=== PATIENT | male | born 1985 | race Caucasian/White ===

== ENCOUNTER → 2017-06-17 | Outpatient (CLI) | payer OTHER ==
[2017-06-17 18:00] LABS: HEMATOCRIT 44.7 % (42.0-52.0); HEMOGLOBIN 15.8 g/dl (14.0-18.0); MEAN CORPUSCULAR HGB CONC 35.3 g/dl (32.0-36.5); MEAN CORPUSCULAR VOLUME 87.6 fl (80.0-96.0); PLATELET COUNT, AUTOMATED 271 10^3/uL (150-450)
[2017-06-17 18:04] LABS: ALBUMIN 4.1 GM/DL (3.2-5.2); ALBUMIN/GLOBULIN RATIO 1.21 (1.00-1.93); ALKALINE PHOSPHATASE 98 U/L (45-117); ALT/SGPT 131 U/L (12-78); ANION GAP 7 MEQ/L (8-16); AST/SGOT 51 U/L (7-37); BILIRUBIN,DIRECT < 0.1 MG/DL (0.0-0.2); BILIRUBIN,TOTAL 0.3 MG/DL (0.2-1.0); BLOOD UREA NITROGEN 13 MG/DL (7-18); CALCIUM LEVEL 8.9 MG/DL (8.5-10.1); CARBON DIOXIDE LEVEL 28 MEQ/L (21-32); CHLORIDE LEVEL 103 MEQ/L (98-107); CREATININE FOR GFR 0.93 MG/DL (0.70-1.30); GLOMERULAR FILTRATION RATE > 60.0 (>60); GLUCOSE, FASTING 95 MG/DL (70-100); PHOSPHORUS LEVEL 3.4 MG/DL (2.5-4.9); POTASSIUM SERUM 4.1 MEQ/L (3.5-5.1); SODIUM LEVEL 138 MEQ/L (136-145); TOTAL PROTEIN 7.5 GM/DL (6.4-8.2)
== END ==
LOC: M SMT 15:27
DX: Z79.899 Other long term (current) drug therapy (principal)

== ENCOUNTER → 2017-11-10 | Outpatient (REF) | payer OTHER | LOC: M SMT 13:35 | DX: Z30.2 Encounter for sterilization (principal) | CPT/HCPCS: 88302 ==

== ENCOUNTER → 2019-08-26 | Outpatient (CLI) | payer OTHER ==
[2019-08-26 16:38] LABS: BASO % 0.3 % (0.0-1.0); EOS % 0.1 % (0.0-3.0); HEMATOCRIT 46.5 % (42.0-52.0); HEMOGLOBIN 16.1 g/dl (13.5-17.5); LYMPH # 1.5 10^3/uL (1.5-5.0); LYMPH % 12.8 % (24.0-44.0); MEAN CORPUSCULAR HEMOGLOBIN 31.9 pg (27.0-33.0); MEAN CORPUSCULAR HGB CONC 34.6 g/dl (32.0-36.5); MEAN CORPUSCULAR VOLUME 92.3 fl (80.0-96.0); MONO # 0.3 10^3/uL (0.0-0.8); MONO % 2.5 % (0.0-5.0); NEUTROPHILS # 9.6 10^3/uL (1.5-8.5); NEUTROPHILS % 83.9 % (36.0-66.0); PLATELET COUNT, AUTOMATED 285 10^3/uL (150-450); RED BLOOD COUNT 5.04 10^6/uL (4.30-6.10); WHITE BLOOD COUNT 11.4 10^3/uL (4.0-10.0)
[2019-08-26 17:02] LABS: ALBUMIN 4.3 GM/DL (3.2-5.2); ALT/SGPT 78 U/L (12-78); AMYLASE 46 U/L (25-115); BILIRUBIN,TOTAL 0.4 MG/DL (0.2-1.0); BLOOD UREA NITROGEN 12 MG/DL (7-18); CALCIUM LEVEL 9.2 MG/DL (8.5-10.1); CARBON DIOXIDE LEVEL 25 MEQ/L (21-32); CHLORIDE LEVEL 106 MEQ/L (98-107); CREATININE FOR GFR 1.06 MG/DL (0.70-1.30); GLOMERULAR FILTRATION RATE > 60.0 (>60); GLUCOSE, FASTING 150 MG/DL (70-100); LIPASE 94 U/L (73-393); POTASSIUM SERUM 4.5 MEQ/L (3.5-5.1); SODIUM LEVEL 140 MEQ/L (136-145); TOTAL PROTEIN 7.9 GM/DL (6.4-8.2)
--- NOTE | 2019-08-27 00:59 | REP ---
Clinical: Nausea. Technique: Two supine views of the abdomen and pelvis. Findings: The bowel gas pattern is relatively nonspecific although mild fecal stasis cannot be excluded. No evidence for obstruction or perforation. No organomegaly. No abnormal calcifications or foreign body. Skeletal structures are intact. Impression: Essentially nonspecific abdominal radiograph. Electronically Signed by Doug Oglesby MD 08/27/2019 12:51 A
== END ==
LOC: M WUC 14:44
PROVIDERS: ATTEND Physician Assistant
DX: R11.2 Nausea with vomiting, unspecified (principal)

== ENCOUNTER 2019-09-26 18:19 | Emergency (ER) | payer OTHER ==
[~2019-09-26] VITALS: Ht 167.6 cm; Wt 94.0 kg
[2019-09-26] MEDS ORDERED: PRIL20TA2 PO (18:24)
[2019-09-26 18:55] LABS: BASO % 0.2 % (0.0-1.0); EOS % 0.1 % (0.0-3.0); HEMOGLOBIN 16.3 g/dl (13.5-17.5); LYMPH # 1.4 10^3/uL (1.5-5.0); LYMPH % 11.6 % (24.0-44.0); MEAN CORPUSCULAR HGB CONC 35.4 g/dl (32.0-36.5); MEAN CORPUSCULAR VOLUME 90.2 fl (80.0-96.0); MONO # 0.3 10^3/uL (0.0-0.8); MONO % 2.6 % (0.0-5.0); NEUTROPHILS # 10.2 10^3/uL (1.5-8.5); NEUTROPHILS % 85.1 % (36.0-66.0); PLATELET COUNT, AUTOMATED 286 10^3/uL (150-450)
[2019-09-26] MEDS ORDERED: NS 1,000 ML IV ONE (19:00)
[2019-09-26] MEDS ORDERED: ISOVUE-370 76% 100ML VIAL As Ordered ONE (19:00)
[2019-09-26] MEDS ORDERED: ONDANSETRON 4MG/2ML VIAL IV ONE (19:00)
[2019-09-26 19:15] LABS: ALBUMIN 4.3 GM/DL (3.2-5.2); BILIRUBIN,DIRECT 0.2 MG/DL (0.0-0.2); BILIRUBIN,TOTAL 0.6 MG/DL (0.2-1.0); TOTAL PROTEIN 7.8 GM/DL (6.4-8.2)
--- NOTE | 2019-09-26 19:40 | REPVR ---
PROCEDURE INFORMATION: Exam: CT Abdomen And Pelvis With Contrast Exam date and time: 09/26/2019 7:08 PM Age: 34 years old Clinical indication: Abdominal pain; Additional info: Abd pain with n/v TECHNIQUE: Imaging protocol: Computed tomography of the abdomen and pelvis with intravenous contrast. Radiation optimization: All CT scans at this facility use at least one of these dose optimization techniques: automated exposure control; mA and/or kV adjustment per patient size (includes targeted exams where dose is matched to clinical indication); or iterative reconstruction. Contrast material: ISO 370; Contrast volume: 100 ml; Contrast route: INTRAVENOUS (IV); COMPARISON: CR ABDOMEN 1 VIEW (KUB) 08/26/2019 3:05 PM FINDINGS: Lungs: No suspicious mass or airspace process in the visualized lung bases. Liver: Liver demonstrates fatty infiltration with focal sparing around the gallbladder fossa. Gallbladder and bile ducts: Gallbladder is present and shows no evidence of gallstone. Pancreas: Pancreas appears normal. No focal mass or peripancreatic inflammation. Spleen: Spleen appears homogeneous without focal mass. Adrenals: Adrenal glands are normal in appearance. Kidneys and ureters: Kidneys appear normal, with no stone, solid mass or hydronephrosis. Stomach and bowel: No evidence of small bowel obstruction. No evidence of acute diverticulitis. Simple fluid density ovoid structure, just lateral to the proximal ascending colon, measuring 13 x 23 mm. This appears to represent a benign mesenteric cyst Appendix: Normal caliber appendix is identified, with no adjacent inflammation. Intraperitoneal space: No pneumoperitoneum. Vasculature: No aortic aneurysm. Main portal and splenic veins enhance normally. Lymph nodes: No enlarged lymph nodes. Bladder: Urinary bladder appears normal. Bones/joints: Bony structures show no acute fracture or destructive process. Soft tissues: Fat containing umbilical hernia is present. No concerning focal abnormality of the extra-abdominal and pelvic soft tissues. IMPRESSION: 1. No acute surgical or inflammatory intra-abdominal or pelvic process. 2. Hepatic steatosis Electronically signed by: Adán Salter On 09/26/2019 19:40:36 PM
[2019-09-26] MEDS ORDERED: OMEP-218 PO (20:23)
[2019-09-26] MEDS ORDERED: ONDA4TAB6 PO (20:23)
[2019-09-26 20:39] VITALS: BP 140/78
== END 2019-09-26 20:41 | disposition home or self-care (01) ==
LOC: M ED 18:19
DX: R11.2 Nausea with vomiting, unspecified (principal); K76.0 Fatty (change of) liver, not elsewhere classified; K21.9 Gastro-esophageal reflux disease without esophagitis; Z72.0 Tobacco use; F12.10 Cannabis abuse, uncomplicated
CPT/HCPCS: 74177; 80047; 80076; 81001; 83690; 85025; 96361; 96374; 99284; J2405; Q9967

== ENCOUNTER 2019-09-28 10:17 | Emergency (ER) | payer OTHER ==
[~2019-09-28] VITALS: Ht 167.6 cm; Wt 93.2 kg
[~2019-09-28 10:17] MED LIST: OMEP-218 PO; ONDA4TAB6 PO; PRIL20TA2 PO
[2019-09-28] MEDS ORDERED: NS 1,000 ML IV ONE ×2 (10:45→13:00)
[2019-09-28 11:15] LABS: HEMATOCRIT 48.2 % (42.0-52.0); HEMOGLOBIN 17.2 g/dl (13.5-17.5); MEAN CORPUSCULAR HEMOGLOBIN 31.8 pg (27.0-33.0); MEAN CORPUSCULAR HGB CONC 35.7 g/dl (32.0-36.5); MEAN CORPUSCULAR VOLUME 89.1 fl (80.0-96.0); PLATELET COUNT, AUTOMATED 284 10^3/uL (150-450); RED BLOOD COUNT 5.41 10^6/uL (4.30-6.10); WHITE BLOOD COUNT 10.1 10^3/uL (4.0-10.0)
[2019-09-28 11:39] LABS: ALBUMIN 4.4 GM/DL (3.2-5.2); ALT/SGPT 77 U/L (12-78); BILIRUBIN,DIRECT 0.2 MG/DL (0.0-0.2); BILIRUBIN,TOTAL 0.8 MG/DL (0.2-1.0); BLOOD UREA NITROGEN 15 MG/DL (7-18); CALCIUM LEVEL 9.5 MG/DL (8.5-10.1); CARBON DIOXIDE LEVEL 24 MEQ/L (21-32); CHLORIDE LEVEL 104 MEQ/L (98-107); CREATININE FOR GFR 1.23 MG/DL (0.70-1.30); GLOMERULAR FILTRATION RATE > 60.0 (>60); GLUCOSE, FASTING 115 MG/DL (70-100); LIPASE 121 U/L (73-393); POTASSIUM SERUM 3.8 MEQ/L (3.5-5.1); SODIUM LEVEL 134 MEQ/L (136-145)
--- NOTE | 2019-09-28 11:52 | REP ---
CHEST, TWO VIEWS: There is no evidence of acute infiltrate. No pleural effusion is seen. The heart is normal in size. The mediastinal silhouette is unremarkable. The visualized osseous structures are intact. IMPRESSION: No acute pulmonary disease. Electronically Signed by Mark Colbert MD 09/29/2019 04:36 P
[2019-09-28 12:09] LABS: ATYPICAL LYMPH 2 % (0-5); BASOPHILS 1 % (0-1); EOSINOPHILS 1 % (0-3); LYMPHOCYTES 19 % (16-44); MONOCYTES 6 % (0-5); NEUTROPHILS 71 % (28-66); PLATELET ESTIMATE NORMAL (NORMAL)
[2019-09-28 12:39] LABS: AMPHETAMINES LEVEL URINE NEGATIVE (NEGATIVE); BARBITURATES URINE NEGATIVE (NEGATIVE); BENZODIAZEPINES URINE NEGATIVE (NEGATIVE); CANNABINOIDS URINE POSITIVE (NEGATIVE); COCAINE METABOLITE URINE NEGATIVE (NEGATIVE); METHADONE URINE NEGATIVE (NEGATIVE); OPIATES URINE NEGATIVE (NEGATIVE); PHENCYCLIDINE URINE NEGATIVE (NEGATIVE)
[2019-09-28 13:05] LABS: CK-MB VALUE MASS 2.5 NG/ML (<3.6); CPK CREATINE PHOSPHOKINASE 373 U/L (39-308); ETHYL ALCOHOL (ETHANOL) 0.003 % (0.000-0.010); MB/CK RELATIVE INDEX 0.67 (< OR =4); TROPONIN I < 0.02 NG/ML (< 0.10)
--- NOTE | 2019-09-28 13:12 | REP ---
RIGHT UPPER QUADRANT ULTRASOUND: Real-time sonographic evaluation of the right upper quadrant is performed. Gallbladder demonstrates no evidence of intraluminal sludge or calculi, wall thickening or pericholecystic fluid. There is no intrahepatic or extrahepatic biliary dilatation, common bile duct measuring 5 mm. There is diffuse hyperechoic echotexture of the liver consistent with fatty infiltration. No gross liver or pancreatic mass is seen. The pancreas is not optimally seen due to overlying bowel gas. Right kidney demonstrates no hydronephrosis with normal size 12.5 cm in length. IMPRESSION: Diffuse fatty infiltration of the liver. Otherwise negative right upper quadrant ultrasound. Electronically Signed by Mark Colbert MD 09/29/2019 04:38 P
[2019-09-28] MEDS ORDERED: HALOPERIDOL 5MG/ML VIAL (J1630 PER 1) IV ONE (13:15)
[2019-09-28 15:20] VITALS: BP 134/89
--- NOTE | 2019-09-29 09:31 | ECGEPIP ---
[facility] - ED Test Date: 2019-09-28 Pat Name: FREDERIC HUBBARD Department: Room: - Gender: Male [employer] Off: CHERRIE : 1985 Requested By: HAROLDO Morrison PA-C Order Number: [id number] Reading MD: Noah Monzon Measurements Intervals [place] Rate: 54 P: -10 KS: 134 QRS: 40 QRSD: 92 T: 33 QT: 413 QTc: 392 Interpretive Statements SINUS BRADYCARDIA WITH SINUS ARRHYTHMIA BENIGN EARLY REPOLARIZATION NO PRIORS FOR COMPARISON Electronically Signed on 09-29-2019 9:30:52 EDT by Noah Monzon
== END 2019-09-28 15:21 | disposition home or self-care (01) ==
LOC: M ED 10:17
DX: G43.A0 Cyclical vomiting, in migraine, not intractable (principal); F12.10 Cannabis abuse, uncomplicated; R00.1 Bradycardia, unspecified; Z72.0 Tobacco use; K76.0 Fatty (change of) liver, not elsewhere classified
CPT/HCPCS: 36415; 71046; 76705; 80048; 80076; 80307; 81001; 82550; 82553; 83605; 83690; 84484; 85025; 93005; 96361; 96374; 99284; G0480; J1630

== ENCOUNTER → 2020-02-06 | Outpatient (CLI) | payer OTHER | LOC: M LABSMTC 10:44 | PROVIDERS: ATTEND Anesthesiology | DX: Z01.812 Encounter for preprocedural laboratory examination (principal); Z20.828 Contact with and (suspected) exposure to other viral communicable diseases | CPT/HCPCS: C9803; U0003 ==

== ENCOUNTER → 2020-03-09 | Outpatient (CLI) | payer OTHER | LOC: M LABSMTC 11:00 | PROVIDERS: ATTEND Anesthesiology | DX: Z01.812 Encounter for preprocedural laboratory examination (principal); Z20.828 Contact with and (suspected) exposure to other viral communicable diseases ==

== ENCOUNTER 2020-03-14 09:57 | Day surgery (SDC) | payer OTHER ==
[~2020-03-14] VITALS: Ht 167.6 cm; Wt 94.8 kg
[~2020-03-14 09:57] MED LIST changes: +NS 1,000 ML IV ONE
[2020-03-14] MEDS ORDERED: fentaNYL 100 MCG/2 ML INJECTION (J3010) As Ordered ONE (11:21)
[2020-03-14] MEDS ORDERED: LIDOCAINE 2% 100MG/5ML SDV (FOR ANES.) As Ordered ONE (11:42)
[2020-03-14] MEDS ORDERED: propofoL 200 MG/20 ML VIAL As Ordered ONE (11:42)
[2020-03-14 12:25] VITALS: BP 120/76
--- NOTE | 2020-03-14 12:33 | ROOR ---
Patient Name: Patrick Leon Procedure Date: 03/14/2020 11:41 AM Date of : 1985 Age: 34 Room: [facility] Gender: Male Note Status: Finalized Procedure: Upper GI endoscopy Indications: Persistent vomiting of unknown cause Providers: Josep Leon MD Referring MD: Nisha Rosa Requesting Provider: Medicines: Monitored Anesthesia Care Complications: No immediate complications. Procedure: Pre-Anesthesia Assessment: - Prior to the procedure, a History and Physical was performed, and patient medications and allergies were reviewed. The patient is competent. The risks and benefits of the procedure and the sedation options and risks were discussed with the patient. All questions were answered and informed consent was obtained. Patient identification and proposed procedure were verified by the physician, the nurse and the anesthesiologist in the procedure room. Mental Status Examination: alert and oriented. Airway Examination: normal oropharyngeal airway and neck mobility. Respiratory Examination: clear to auscultation. CV Examination: normal. Prophylactic Antibiotics: The patient does not require prophylactic antibiotics. Prior Anticoagulants: The patient has taken no previous anticoagulant or antiplatelet agents. ASA Grade Assessment: II - A patient with mild systemic disease. After reviewing the risks and benefits, the patient was deemed in satisfactory condition to undergo the procedure. The anesthesia plan was to use monitored anesthesia care (MAC). Immediately prior to administration of medications, the patient was re-assessed for adequacy to receive sedatives. The heart rate, respiratory rate, oxygen saturations, blood pressure, adequacy of pulmonary ventilation, and response to care were monitored throughout the procedure. The physical status of the patient was re-assessed after the procedure. The Endoscope was introduced through the mouth, and advanced to the second part of duodenum. The upper GI endoscopy was accomplished without difficulty. The patient tolerated the procedure well. Findings: No gross lesions were noted in the entire esophagus. Scattered mild inflammation characterized by erythema and granularity was found in the gastric body and in the gastric antrum. Biopsies were taken with a cold forceps for Helicobacter pylori testing. Verification of patient identification for the specimen was done by the physician and nurse using the patient's name, date and medical record number. Estimated blood loss was minimal. The duodenal bulb and second portion of the duodenum were normal. Biopsies for histology were taken with a cold forceps for evaluation of celiac disease. Impression: - No gross lesions in esophagus. - Gastritis. Biopsied. - Normal duodenal bulb and second portion of the duodenum. Biopsied. Recommendation: - Patient has a contact number available for emergencies. The signs and symptoms of potential delayed complications were discussed with the patient. Return to normal activities tomorrow. Written discharge instructions were provided to the patient. - High fiber diet. - Continue present medications. - Await pathology results. - Telephone GI clinic for pathology results in 2 weeks. - Return to primary care physician. Procedure Code(s): --- Professional --- 01770, Esophagogastroduodenoscopy, flexible, transoral; with biopsy, single or multiple Diagnosis Code(s): --- Professional --- K29.70, Gastritis, unspecified, without bleeding R11.15, Cyclical vomiting syndrome unrelated to migraine CPT copyright 2019 [employer]. All rights reserved. The codes documented in this report are preliminary and upon private banker review may be revised to meet current compliance requirements. Josep Leon MD Josep Leon MD 03/14/2020 12:33:23 PM Electronically signed by Josep Leon MD Number of Addenda: 0 Note Initiated On: 03/14/2020 11:41 AM Estimated Blood Loss: Estimated blood loss was minimal.
== END 2020-03-14 12:26 | disposition home or self-care (01) ==
LOC: M OPP 09:57
PROVIDERS: ATTEND Internal Medicine Gastroenterology
DX: K29.70 Gastritis, unspecified, without bleeding (principal); R11.2 Nausea with vomiting, unspecified; F17.210 Nicotine dependence, cigarettes, uncomplicated
CPT/HCPCS: 43239; 88305; J3010

== ENCOUNTER 2020-06-25 15:46 | Emergency (ER) | payer OTHER ==
[~2020-06-25] VITALS: Ht 167.6 cm; Wt 95.0 kg
[~2020-06-25 15:46] MED LIST changes: -NS 1,000 ML IV ONE
[2020-06-25] MEDS ORDERED: ONDANSETRON 4MG/2ML VIAL IV ONE (15:55)
[2020-06-25] MEDS ORDERED: PANT40TA29 (15:55)
[2020-06-25] MEDS ORDERED: NS 1,000 ML IV ONE (15:55)
[2020-06-25] MEDS ORDERED: ONDA4TAB6 (15:55)
[2020-06-25] MEDS ORDERED: ONDANSETRON 4MG/2ML VIAL As Ordered ONE (16:04)
[2020-06-25 16:32] LABS: BASO % 0.3 % (0.0-1.0); EOS % 0.3 % (0.0-3.0); HEMATOCRIT 49.5 % (42.0-52.0); HEMOGLOBIN 17.5 g/dl (13.5-17.5); LYMPH # 0.7 10^3/uL (1.5-5.0); LYMPH % 5.8 % (24.0-44.0); MEAN CORPUSCULAR HEMOGLOBIN 31.8 pg (27.0-33.0); MEAN CORPUSCULAR HGB CONC 35.4 g/dl (32.0-36.5); MEAN CORPUSCULAR VOLUME 89.8 fl (80.0-96.0); MONO # 0.4 10^3/uL (0.0-0.8); MONO % 3.4 % (2.0-8.0); NEUTROPHILS # 10.8 10^3/uL (1.5-8.5); NEUTROPHILS % 89.8 % (36.0-66.0); PLATELET COUNT, AUTOMATED 292 10^3/uL (150-450); RED BLOOD COUNT 5.51 10^6/uL (4.30-6.10)
[2020-06-25 16:51] LABS: ALBUMIN 4.4 GM/DL (3.2-5.2); BILIRUBIN,DIRECT 0.2 MG/DL (0.0-0.2)
[2020-06-25] MEDS ORDERED: ISOVUE-370 76% 100ML VIAL As Ordered ONE (16:52)
[2020-06-25] MEDS ORDERED: DICYCLOMINE INJ 20MG/2ML (J0500) IM ONE (17:15)
[2020-06-25 17:17] LABS: HEMOGLOBIN A1c 5.7 %
--- NOTE | 2020-06-25 17:42 | REPVR ---
PROCEDURE INFORMATION: Exam: CT Abdomen And Pelvis With Contrast Exam date and time: 06/25/2020 5:06 PM Age: 34 years old Clinical indication: Abdominal pain; Localized; Right lower quadrant (rlq); Additional info: Rlq pain TECHNIQUE: Imaging protocol: Computed tomography of the abdomen and pelvis with contrast. Radiation optimization: All CT scans at this facility use at least one of these dose optimization techniques: automated exposure control; mA and/or kV adjustment per patient size (includes targeted exams where dose is matched to clinical indication); or iterative reconstruction. Contrast material: ISOVUE 370; Contrast volume: 100 ml; Contrast route: INTRAVENOUS (IV); COMPARISON: CT ABD/PEL W/IV CONTRAST ONLY 09/26/2019 7:01 PM FINDINGS: Liver: Diffuse hepatic steatosis with areas of focal fatty sparing adjacent to the gallbladder fossa. Gallbladder and bile ducts: Unremarkable. No calcified stones. No ductal dilation. Pancreas: Unremarkable. No ductal dilation. Spleen: Unremarkable. No splenomegaly. Adrenal glands: Normal. No mass. Kidneys and ureters: Unremarkable. No stones. No hydronephrosis. Stomach and bowel: Unremarkable. No obstruction. No mucosal thickening. Appendix: The appendix is mildly dilated measuring 8 mm in diameter. No inflammatory changes are present within the periappendiceal fat however. No calcified appendicular lith is present. The appendix had a maximal diameter of 6 mm on the previous CT scan performed on 09/26/2019. Intraperitoneal space: Unremarkable. No free air. No significant fluid collection. Vasculature: Unremarkable. No abdominal aortic aneurysm. Lymph nodes: Unremarkable. No enlarged lymph nodes. Urinary bladder: Unremarkable as visualized. Reproductive: Unremarkable as visualized. Bones/joints: Mild degenerative spondylosis of the lower lumbar spine. No fracture or suspicious bone lesion. Soft tissues: Unremarkable. IMPRESSION: 1. Diffuse hepatic steatosis. 2. Mildly dilated appendix measuring 8 mm in diameter. (compared to 6 mm on the previous CT scan). No periappendiceal inflammatory changes are present to indicate acute appendicitis. Extremely early acute appendicitis cannot be completely excluded. Close clinical correlation and possible short-term follow-up imaging is recommended as clinically warranted. Electronically signed by: Jose Nguyễn On 06/25/2020 17:42:53 PM
[2020-06-25] MEDS ORDERED: ONDA4TAB6 PO (19:02)
[2020-06-25 19:33] VITALS: BP 114/65
--- NOTE | 2020-06-26 13:12 | ED PDOC ---
Post-Departure Follow-Up certiifed letter sent to pt re formal read of ct abd/p. needs pcp fu. find out p cp name and fax. If none, refer to [facility] and fax Zach Toney MD Jun 26, 2020 13:12
== END 2020-06-25 19:34 | disposition home or self-care (01) ==
LOC: M ED 15:46
DX: K52.9 Noninfective gastroenteritis and colitis, unspecified (principal); F17.200 Nicotine dependence, unspecified, uncomplicated; F12.10 Cannabis abuse, uncomplicated; K76.0 Fatty (change of) liver, not elsewhere classified
CPT/HCPCS: 74177; 80047; 80076; 81001; 83036; 83690; 85025; 96361; 96372; 96374; 99284; J0500; J2405; Q9967

== ENCOUNTER 2022-11-02 12:52 | Emergency (ER) | payer OTHER ==
[~2022-11-02] VITALS: Ht 167.6 cm; Wt 89.7 kg
[~2022-11-02 12:52] MED LIST changes: +OMEP-173 PO; -OMEP-218 PO; +ONDA4TAB6; +PANT40TA29
[2022-11-02 13:52] LABS: BASO % 0.4 % (0.0-1.0); EOS % 0.2 % (0.0-3.0); HEMOGLOBIN 16.6 g/dl (13.5-17.5); LYMPH # 1.1 10^3/uL (1.5-5.0); LYMPH % 10.4 % (24.0-44.0); MEAN CORPUSCULAR HEMOGLOBIN 31.9 pg (27.0-33.0); MEAN CORPUSCULAR HGB CONC 34.6 g/dl (32.0-36.5); MEAN CORPUSCULAR VOLUME 92.1 fl (80.0-96.0); MONO # 0.2 10^3/uL (0.0-0.8); MONO % 2.2 % (2.0-8.0); NEUTROPHILS # 9.4 10^3/uL (1.5-8.5); NEUTROPHILS % 86.4 % (36.0-66.0); PLATELET COUNT, AUTOMATED 254 10^3/uL (150-450); RED BLOOD COUNT 5.21 10^6/uL (4.30-6.10); WHITE BLOOD COUNT 10.9 10^3/uL (4.0-10.0)
[2022-11-02 14:19] LABS: LIPASE 39 U/L (12-53)
[2022-11-02 14:21] LABS: ALBUMIN 4.7 G/DL (3.2-5.2); ALKALINE PHOSPHATASE 96 U/L (46-116); ALT/SGPT 47 U/L (7.0-40); AST/SGOT 25 U/L (<34); BILIRUBIN,DIRECT 0.4 MG/DL (<0.4); BILIRUBIN,TOTAL 1.1 MG/DL (0.3-1.2); BLOOD UREA NITROGEN 9 MG/DL (9-23); CALCIUM LEVEL 9.6 MG/DL (8.5-10.1); CARBON DIOXIDE LEVEL 23 MMOL/L (20-31); CHLORIDE LEVEL 102 MMOL/L (98-107); CREATININE FOR GFR 0.89 MG/DL (0.70-1.30); GLOMERULAR FILTRATION RATE > 60.0 (>60); GLUCOSE, FASTING 122 MG/DL (60-100); POTASSIUM SERUM 4.9 MMOL/L (3.5-5.1); SODIUM LEVEL 138 MMOL/L (136-145); TOTAL PROTEIN 7.8 G/DL (5.7-8.2)
[2022-11-02] MEDS ORDERED: PANTOPRAZOLE 40MG VIAL IV ONE (14:50)
[2022-11-02] MEDS ORDERED: NS 1,000 ML IV ONE ×2 (14:50→16:45)
[2022-11-02] MEDS ORDERED: ONDANSETRON 4MG 2ML VIAL IV ONE (14:50)
[2022-11-02] MEDS ORDERED: PROMETHAZINE 25MG/ML 1ML VIAL IV ONE (16:45)
[2022-11-02] MEDS ORDERED: PROM25TA12 PO (17:24)
[2022-11-02] MEDS ORDERED: ONDA4TAB6 PO (17:24)
[2022-11-02] MEDS ORDERED: SUCR1SS PO (17:24)
[2022-11-02 17:41] VITALS: BP 136/90; TEMP 98.3; O2SAT 99
== END 2022-11-02 17:53 | disposition home or self-care (01) ==
LOC: M ED 12:52
DX: K29.50 Unspecified chronic gastritis without bleeding (principal); K21.9 Gastro-esophageal reflux disease without esophagitis; F17.200 Nicotine dependence, unspecified, uncomplicated
CPT/HCPCS: 80048; 80076; 83690; 85025; 96361; 96374; 96375; 99284; C9113; J2405; J2550

== ENCOUNTER 2022-11-04 10:37 | Emergency (ER) | payer OTHER ==
[~2022-11-04] VITALS: Ht 167.6 cm; Wt 94.5 kg
[~2022-11-04 10:37] MED LIST changes: +PROM25TA12 PO; +SUCR1SS PO
[2022-11-04 11:54] LABS: HEMATOCRIT 47.9 % (42.0-52.0); HEMOGLOBIN 16.6 g/dl (13.5-17.5); MEAN CORPUSCULAR HEMOGLOBIN 31.7 pg (27.0-33.0); MEAN CORPUSCULAR HGB CONC 34.7 g/dl (32.0-36.5); MEAN CORPUSCULAR VOLUME 91.6 fl (80.0-96.0); PLATELET COUNT, AUTOMATED 275 10^3/uL (150-450); RED BLOOD COUNT 5.23 10^6/uL (4.30-6.10); WHITE BLOOD COUNT 10.8 10^3/uL (4.0-10.0)
[2022-11-04 12:19] LABS: ALBUMIN 4.5 G/DL (3.2-5.2); ALKALINE PHOSPHATASE 85 U/L (46-116); ALT/SGPT 43 U/L (7.0-40); AST/SGOT 18 U/L (<34); BILIRUBIN,TOTAL 0.8 MG/DL (0.3-1.2); BLOOD UREA NITROGEN 14 MG/DL (9-23); CALCIUM LEVEL 9.7 MG/DL (8.5-10.1); CARBON DIOXIDE LEVEL 24 MMOL/L (20-31); CHLORIDE LEVEL 102 MMOL/L (98-107); CREATININE FOR GFR 0.99 MG/DL (0.70-1.30); GLOMERULAR FILTRATION RATE > 60.0 (>60); GLUCOSE, FASTING 104 MG/DL (60-100); SODIUM LEVEL 138 MMOL/L (136-145); TOTAL PROTEIN 7.5 G/DL (5.7-8.2)
[2022-11-04] MEDS ORDERED: HALOPERIDOL 5MG/ML 1ML VIAL IV ONE ×2 (15:00→16:20)
[2022-11-04] MEDS ORDERED: NS 1,000 ML IV ONE (15:00)
[2022-11-04] MEDS ORDERED: HYOSCYAMINE SULFATE 0.125 MG SUBL TABLET PO ONE (16:20)
[2022-11-04] MEDS ORDERED: SUCRALFATE 1 GM TAB PO ONE (16:20)
[2022-11-04] MEDS ORDERED: MAALOX 30 ML SUSP *UDC PO ONE (16:20)
[2022-11-04] MEDS ORDERED: PANTOPRAZOLE 40MG VIAL IV ONE (16:20)
[2022-11-04] MEDS ORDERED: PANT40TA29 PO (17:00)
[2022-11-04 17:06] VITALS: BP 149/75; TEMP 99.1; O2SAT 96
== END 2022-11-04 17:10 | disposition home or self-care (01) ==
LOC: M ED 10:37
DX: R11.15 Cyclical vomiting syndrome unrelated to migraine (principal); E11.9 Type 2 diabetes mellitus without complications; Z87.19 Personal history of other diseases of the digestive system; F17.200 Nicotine dependence, unspecified, uncomplicated
CPT/HCPCS: 80053; 85027; 96374; 96375; 96376; 99283; C9113; J1630

== ENCOUNTER 2022-11-06 12:21 | Emergency (ER) | payer OTHER ==
[~2022-11-06] VITALS: Ht 167.6 cm; Wt 97.1 kg
[~2022-11-06 12:21] MED LIST changes: +PANT40TA29 PO
[2022-11-06 13:30] LABS: BASO % 0.4 % (0.0-1.0); EOS # 0.1 10^3/uL (0.0-0.5); EOS % 0.5 % (0.0-3.0); HEMATOCRIT 52.6 % (42.0-52.0); HEMOGLOBIN 17.9 g/dl (13.5-17.5); LYMPH # 1.7 10^3/uL (1.5-5.0); MEAN CORPUSCULAR HEMOGLOBIN 31.4 pg (27.0-33.0); MEAN CORPUSCULAR VOLUME 92.3 fl (80.0-96.0); MONO # 0.6 10^3/uL (0.0-0.8); NEUTROPHILS # 8.8 10^3/uL (1.5-8.5); NEUTROPHILS % 78.7 % (36.0-66.0); PLATELET COUNT, AUTOMATED 305 10^3/uL (150-450); WHITE BLOOD COUNT 11.1 10^3/uL (4.0-10.0)
[2022-11-06 13:46] LABS: LIPASE 40 U/L (12-53)
[2022-11-06 13:53] LABS: ALBUMIN 4.9 G/DL (3.2-5.2); ALKALINE PHOSPHATASE 96 U/L (46-116); ALT/SGPT 49 U/L (7.0-40); AST/SGOT 20 U/L (<34); BILIRUBIN,DIRECT 0.4 MG/DL (<0.4); BILIRUBIN,TOTAL 1.2 MG/DL (0.3-1.2); BLOOD UREA NITROGEN 13 MG/DL (9-23); CALCIUM LEVEL 9.7 MG/DL (8.5-10.1); CARBON DIOXIDE LEVEL 28 MMOL/L (20-31); CHLORIDE LEVEL 98 MMOL/L (98-107); CREATININE FOR GFR 1.06 MG/DL (0.70-1.30); GLOMERULAR FILTRATION RATE > 60.0 (>60); GLUCOSE, FASTING 103 MG/DL (60-100); POTASSIUM SERUM 4.2 MMOL/L (3.5-5.1); SODIUM LEVEL 137 MMOL/L (136-145); TOTAL PROTEIN 8.1 G/DL (5.7-8.2)
[2022-11-06] MEDS ORDERED: FAMOTIDINE 20MG/2ML VIAL IVP ONE (16:05)
[2022-11-06] MEDS ORDERED: ONDANSETRON 4MG 2ML VIAL IV ONE (16:05)
[2022-11-06] MEDS ORDERED: ISOVUE-370 76% 100ML VIAL As Ordered ONE (16:56)
[2022-11-06] MEDS ORDERED: NS 500 ML IV ONE (18:00)
[2022-11-06] MEDS ORDERED: PEPC1TAB5 PO (18:32)
[2022-11-06] MEDS ORDERED: ONDA4TAB6 PO (18:32)
[2022-11-06 18:42] VITALS: BP 143/91; TEMP 98.3; O2SAT 99
== END 2022-11-06 18:59 | disposition home or self-care (01) ==
LOC: M ED 12:21
DX: K29.70 Gastritis, unspecified, without bleeding (principal); Z79.899 Other long term (current) drug therapy
CPT/HCPCS: 36415; 74177; 80048; 80076; 83690; 85025; 96374; 96375; 99284; J2405; Q9967; S0028

== ENCOUNTER → 2022-12-17 | Outpatient (REF) | payer OTHER ==
[~2022-12-17] MED LIST changes: +PEPC1TAB5 PO
[2022-12-17 22:33] LABS: GC DNA AMPLIFICATION NEGATIVE (NEGATIVE)
== END ==
LOC: M WUC 19:26
PROVIDERS: ATTEND Physician Assistant
DX: R30.0 Dysuria (principal)

== ENCOUNTER 2023-04-06 09:36 | Emergency (ER) | payer OTHER ==
[~2023-04-06] VITALS: Ht 170.2 cm; Wt 93.2 kg
[2023-04-06] MEDS ORDERED: SEMA1PEN2 (09:42)
[2023-04-06] MEDS ORDERED: METO10TA3 (09:42)
[2023-04-06] MEDS ORDERED: ONDANSETRON 4MG 2ML VIAL IV ONE (11:50)
[2023-04-06] MEDS ORDERED: NS 1,000 ML IV ONE (11:50)
[2023-04-06 11:55] LABS: BASO % 0.2 % (0.0-1.0); EOS % 0.3 % (0.0-3.0); HEMATOCRIT 48.9 % (42.0-52.0); HEMOGLOBIN 17.1 g/dl (13.5-17.5); LYMPH # 2.1 10^3/uL (1.5-5.0); LYMPH % 20.5 % (24.0-44.0); MEAN CORPUSCULAR HEMOGLOBIN 31.9 pg (27.0-33.0); MEAN CORPUSCULAR VOLUME 91.2 fl (80.0-96.0); MONO # 0.6 10^3/uL (0.0-0.8); MONO % 5.9 % (2.0-8.0); NEUTROPHILS # 7.5 10^3/uL (1.5-8.5); NEUTROPHILS % 72.8 % (36.0-66.0); PLATELET COUNT, AUTOMATED 268 10^3/uL (150-450); RED BLOOD COUNT 5.36 10^6/uL (4.30-6.10); WHITE BLOOD COUNT 10.2 10^3/uL (4.0-10.0)
[2023-04-06 12:29] LABS: ALBUMIN 4.5 G/DL (3.2-5.2); BILIRUBIN,DIRECT 0.3 MG/DL (<0.4); BILIRUBIN,TOTAL 0.9 MG/DL (0.3-1.2); TOTAL PROTEIN 8.1 G/DL (5.7-8.2)
[2023-04-06 14:13] VITALS: BP 144/78; TEMP 97.8; O2SAT 97
[2023-04-07] MEDS ORDERED: ONDA-83 PO (14:52)
[2023-04-07] MEDS ORDERED: PROM25TA12 PO (18:11)
== END 2023-04-06 14:15 | disposition home or self-care (01) ==
LOC: M ED 09:36
DX: U07.1 COVID-19 (principal); R73.03 Prediabetes; F17.290 Nicotine dependence, other tobacco product, uncomplicated; Z79.899 Other long term (current) drug therapy; Z79.4 Long term (current) use of insulin
CPT/HCPCS: 80047; 80076; 83690; 85025; 87486; 87581; 87633; 87798; 96361; 96374; 99284; J2405

== ENCOUNTER 2023-04-07 14:43 | Emergency (ER) | payer OTHER ==
[~2023-04-07] VITALS: Ht 170.2 cm; Wt 93.5 kg
[~2023-04-07 14:43] MED LIST changes: +METO10TA3; +SEMA1PEN2
[2023-04-07] MEDS ORDERED: ONDA-83 PO (14:52)
[2023-04-07] MEDS ORDERED: PROMETHAZINE 25MG/ML 1ML VIAL IV ONE (16:35)
[2023-04-07] MEDS ORDERED: NS 1,000 ML IV ONE (16:35)
[2023-04-07 17:26] LABS: BASO % 0.3 % (0.0-1.0); EOS % 0.2 % (0.0-3.0); HEMATOCRIT 47.6 % (42.0-52.0); HEMOGLOBIN 16.9 g/dl (13.5-17.5); LYMPH % 21.7 % (24.0-44.0); MEAN CORPUSCULAR HEMOGLOBIN 31.9 pg (27.0-33.0); MEAN CORPUSCULAR HGB CONC 35.5 g/dl (32.0-36.5); MONO # 0.4 10^3/uL (0.0-0.8); MONO % 4.8 % (2.0-8.0); NEUTROPHILS # 6.5 10^3/uL (1.5-8.5); NEUTROPHILS % 72.8 % (36.0-66.0); PLATELET COUNT, AUTOMATED 275 10^3/uL (150-450); RED BLOOD COUNT 5.29 10^6/uL (4.30-6.10)
[2023-04-07 18:02] LABS: BLOOD UREA NITROGEN 9 MG/DL (9-23); CALCIUM LEVEL 9.1 MG/DL (8.5-10.1); CARBON DIOXIDE LEVEL 23 MMOL/L (20-31); CHLORIDE LEVEL 101 MMOL/L (98-107); GLOMERULAR FILTRATION RATE > 60.0 (>60); GLUCOSE, FASTING 104 MG/DL (60-100); POTASSIUM SERUM 4.6 MMOL/L (3.5-5.1); SODIUM LEVEL 136 MMOL/L (136-145)
[2023-04-07] MEDS ORDERED: PROM25TA12 PO (18:11)
[2023-04-07 18:31] VITALS: BP 141/82; TEMP 99.5; O2SAT 99
== END 2023-04-07 18:44 | disposition home or self-care (01) ==
LOC: M ED 14:43
DX: U07.1 COVID-19 (principal); K21.9 Gastro-esophageal reflux disease without esophagitis; F17.200 Nicotine dependence, unspecified, uncomplicated; Z79.83 Long term (current) use of bisphosphonates; Z79.899 Other long term (current) drug therapy
CPT/HCPCS: 71045; 80048; 85025; 96361; 96374; 99284; J2550

== ENCOUNTER 2024-06-07 07:57 | Day surgery (SDC) | payer OTHER ==
[~2024-06-07] VITALS: Ht 167.6 cm; Wt 96.5 kg
[~2024-06-07 07:57] MED LIST changes: +ONDA-282; +ONDA-282 PO; +ONDA-83 PO; -ONDA4TAB6; -ONDA4TAB6 PO; +PROT20TA11 PO; +SILD50TA2 PO; +TIRZ7.5P3 SC; +[UNRECOGNIZED DRUG - CODE] SC
[2024-06-07] MEDS ORDERED: LIDOCAINE 2% 100MG/5ML SDV (FOR ANES.) As Ordered ONE (08:11)
[2024-06-07] MEDS ORDERED: MIDAZOLAM INJ 2MG/2ML VIAL As Ordered ONE (08:11)
[2024-06-07] MEDS ORDERED: fentaNYL 100 MCG/2 ML INJECTION As Ordered ONE (08:11)
[2024-06-07] MEDS ORDERED: ONDANSETRON 4MG 2ML VIAL As Ordered ONE (08:12)
[2024-06-07] MEDS ORDERED: propofoL 200 MG/20 ML VIAL As Ordered ONE (08:12)
[2024-06-07] MEDS ORDERED: ROCURONIUM BROMIDE 50MG/5ML VIAL As Ordered ONE (08:12)
[2024-06-07] MEDS ORDERED: SUGAMMADEX SODIUM 500 MG/5 ML VIAL (BRIDION) As Ordered ONE (08:12)
[2024-06-07] MEDS ORDERED: ACETAMINOPHEN 1000MG/100ML IV BAG As Ordered ONE (08:12)
[2024-06-07] MEDS ORDERED: LR 1,000 ML IV SCH ×2 (08:30→12:55)
[2024-06-07] MEDS: ceFAZolin SOD 2 GM in IV 1 EA IV ONE (10:00)
[2024-06-07] MEDS: HEPARIN SOD (PORCINE) 5000UNITS/ML 1ML VIAL/SYRINGE SQ ONE (10:03)
[2024-06-07] MEDS ORDERED: KETOROLAC 60MG 2ML VIAL As Ordered ONE (10:17)
[2024-06-07] MEDS ORDERED: fentaNYL 100 MCG/2 ML INJECTION IV PRN (12:55)
[2024-06-07] MEDS ORDERED: HYDR-3713 PO (13:13)
[2024-06-07] MEDS: ONDANSETRON 4MG 2ML VIAL IV PRN (13:30)
[2024-06-07] MEDS: HYDROMORPHONE HCL 0.5 MG/ 0.5 ML SYRINGE IV PRN (13:34)
[2024-06-07] MEDS: oxyCODONE 5MG TAB PO PRN (13:38)
[2024-06-07 14:44] VITALS: BP 141/77; TEMP 97.5; O2SAT 98
== END 2024-06-07 15:13 | disposition home or self-care (01) ==
LOC: M SDC 07:57
PROVIDERS: ATTEND Surgery
DX: K40.20 Bilateral inguinal hernia, without obstruction or gangrene, not specified as recurrent (principal); K42.9 Umbilical hernia without obstruction or gangrene; K21.9 Gastro-esophageal reflux disease without esophagitis; R73.03 Prediabetes; Z79.899 Other long term (current) drug therapy; F17.210 Nicotine dependence, cigarettes, uncomplicated
CPT/HCPCS: 49591; 49650; C1781; J0131; J0665; J0690; J1100; J1171; J1885; J2250; J2405; J3010; S2900